=== PATIENT | female | born 2000 | race Asian ===

== ENCOUNTER 2024-03-10 17:15 | Emergency (ER) | payer OTHER ==
[~2024-03-10] VITALS: Ht 157.5 cm; Wt 45.4 kg
[2024-03-10 17:25] VITALS: BP 117/77; TEMP 97.8; O2SAT 99
== END 2024-03-10 21:10 | disposition left against medical advice (07) ==
LOC: ER 17:30
DX: R10.32 Left lower quadrant pain (principal); M54.59 Other low back pain; Z53.21 Procedure and treatment not carried out due to patient leaving prior to being seen by health care provider